=== PATIENT | male | born 1985 | race Caucasian/White ===

== ENCOUNTER 2016-05-13 07:45 | Emergency (ER) | payer OTHER ==
[2016-05-13 08:05] VITALS: BP 128/87
--- NOTE | 2016-05-13 08:27 | UC ---
Respiratory Complaint HPI - HPI Summary HPI Summary: 2 DAYS OF COUGH, QUICK AND CHILLS. NO FEVER, ST, EAR PAIN, N/V/D. COUGH IS KEEPING HIM UP AT NIGHT. DID GET A FLU SHOT THIS SEASON. - History of Current Complaint Chief Complaint: UCRespiratory Stated Complaint: FLU SYMPTOMS Time Seen by Provider: 05/13/16 08:17 Hx Obtained From: Patient Onset/Duration: Gradual Onset, Lasting Days, Still Present Timing: Constant Severity Initially: Mild Severity Currently: Mild Pain Intensity: 0 Pain Scale Used: 0-10 Numeric Character: Cough: Nonproductive Aggravating Factors: Recumbent Position Alleviating Factors: Nothing Associated Signs And Symptoms: Positive: Chills, URI, Nasal Congestion. Negative: Dyspnea, Fever, Pleuritic Chest Pain, Wheezing, Hemoptysis, Dizziness , Calf Pain, Calf Swelling, Edema, Hoarseness, Sinus Discomfort - Allergies/Home Medications Allergies/Adverse Reactions: Allergies Allergy/AdvReac Type Severity Reaction Status Date / Time Carbamazepine [From Tegretol] Allergy Swelling Verified 08/26/12 10:34 Of Face,Lips,& Throat Home Medications: Home Medications Secukinumab [Cosentyx] 150 mg SC SEE INSTRUCTIONS 05/13/16 [History Confirmed ] PMH/Surg Hx/FS Hx/Imm Hx Cardiovascular History Of: Denies: Cardiac Disorders, Hypertension Respiratory History Of: Denies: COPD, Asthma Neurological History Of: Reports: Seizures - Surgical History Surgical History: None - Family History Known Family History: Positive: Cardiac Disease, Hypertension - Social History Alcohol Use: Daily Alcohol Amount: daily beer Substance Use Type: None Smoking Status (MU): Light Every Day Tobacco Smoker - Immunization History Most Recent Influenza Vaccination: utd Most Recent Tetanus Shot: utd Review of Systems Constitutional: Chills, Fatigue ENT: Nasal Discharge Respiratory: Cough Cardiovascular: Negative Gastrointestinal: Negative Neurological: Headache All Other Systems Reviewed And Are Negative: Yes Physical Exam Triage Information Reviewed: Yes Appearance: Well-Appearing, No Pain Distress, Well-Nourished Vital Signs: Initial Vital Signs Temp 98.8 F 05/13/16 07:55 Pulse 89 05/13/16 07:55 Resp 18 05/13/16 07:55 BP 128/87 05/13/16 07:55 Pulse Ox 97 05/13/16 07:55 Vital Signs Reviewed: Yes Eyes: Positive: Conjunctiva Clear ENT: Positive: Hearing grossly normal, Pharynx normal, TMs normal Neck: Positive: Supple, Nontender, No Lymphadenopathy Respiratory Exam: Normal Cardiovascular Exam: Normal Abdomen Description: Positive: Soft Musculoskeletal: Positive: No Edema Neurological: Positive: Alert Psychological: Positive: Age Appropriate Behavior Skin: Negative: rashes UC Diagnostic Evaluation - Laboratory O2 Sat by Pulse Oximetry: 97 Respiratory Course/Dx - Differential Dx/Diagnosis Differential Diagnosis/HQI/PQRI: Bronchitis, Influenza, Sinusitis Provider Diagnoses: ACUTE URI Discharge - Discharge Plan Condition: Stable Disposition: HOME Prescriptions: guaiFENesin/CODIEN 100MG-10MG* [Robitussin AC 100Mg-10Mg*] 5 - 10 ml PO Q6H PRN #150 ml MDD 40ML PRN Reason: Cough Patient Education Materials: Upper Respiratory Infection (ED) Forms: *Work Release Referrals: Garret Omer MD [Primary Care Provider] - If Needed
== END 2016-05-13 08:40 | disposition home or self-care (01) ==
LOC: UCEAST 07:45
DX: J06.9 Acute upper respiratory infection, unspecified (principal); F17.290 Nicotine dependence, other tobacco product, uncomplicated; R56.9 Unspecified convulsions; Z88.1 Allergy status to other antibiotic agents
CPT/HCPCS: 99201; G0463

== ENCOUNTER 2018-08-17 08:39 | Emergency (ER) | payer OTHER, BC ==
[2018-08-17 08:50] VITALS: BP 133/77
--- NOTE | 2018-08-17 10:06 | UC ---
Lower Extremity/Ankle HPI - HPI Summary HPI Summary: Dropped a tar kettle runner grade wooden knife block on his right foot 6 days ago. Has persistent pain, bruising and swelling. - History of Current Complaint Chief Complaint: UCLowerExtremity Stated Complaint: FOOT INJURY Time Seen by Provider: 08/17/18 09:21 Hx Obtained From: Patient Onset/Duration: Sudden Onset, Lasting Days, Still Present Severity Initially: Moderate Severity Currently: Moderate Pain Intensity: 6 Pain Scale Used: 0-10 Numeric Aggravating Factor(s): Standing, Ambulation Alleviating Factor(s): Rest, Elevation Able to Bear Weight: Yes - WITH PAIN - Allergies/Home Medications Allergies/Adverse Reactions: Allergies Allergy/AdvReac Type Severity Reaction Status Date / Time carbamazepine [From Tegretol] Allergy swelling Verified 08/17/18 08:44 face lips and throat PMH/Surg Hx/FS Hx/Imm Hx Previously Healthy: Yes - Surgical History Surgical History: Yes Surgery Procedure, Year, and Place: hydrocele - Family History Known Family History: Positive: Cardiac Disease, Hypertension - Social History Alcohol Use: Daily Alcohol Amount: daily beer Substance Use Type: None Smoking Status (MU): Current Some Day Smoker - Immunization History Most Recent Influenza Vaccination: utd Most Recent Tetanus Shot: utd Review of Systems All Other Systems Reviewed And Are Negative: Yes Constitutional: Positive: Negative Skin: Positive: Bruising Respiratory: Positive: Negative Cardiovascular: Positive: Negative Gastrointestinal: Positive: Negative Musculoskeletal: Positive: Arthralgia, Edema Physical Exam Triage Information Reviewed: Yes Appearance: Well-Appearing, No Pain Distress, Well-Nourished Vital Signs: Initial Vital Signs Temp 98 F 08/17/18 08:45 Pulse 84 08/17/18 08:45 Resp 17 08/17/18 08:45 BP 133/77 08/17/18 08:45 Pulse Ox 100 08/17/18 08:45 Vital Signs Reviewed: Yes Eyes: Positive: Conjunctiva Clear ENT: Positive: Hearing grossly normal Neck: Positive: Supple Respiratory: Positive: No respiratory distress, No accessory muscle use Cardiovascular: Positive: Pulses Normal Abdomen Description: Positive: Soft Musculoskeletal: Positive: ROM Intact, Edema @ - HEMATOMA BRIDGE OF FOOT WITH TENDERNESS OVER METATARSALS Neurological: Positive: Alert Psychological: Positive: Age Appropriate Behavior Skin: Positive: Other - BRUSING OVER RIGHT FOOT FROM HEEL TO TOES AND OVER BRIDGE OF FOOT Diagnostics - Radiology RIGHT FOOT XRAYS Radiology Interpretation Completed By: Radiologist Summary of Radiographic Findings: 1. Significant soft tissue swelling over the dorsum of the forefoot with suggestion of. an approximate 2.1 cm anteroposterior by 0.8 cm cephalocaudal loculated hematoma, given. the clinical context, within the superficial soft tissue plane at the level of the. metatarsals with overlying convexity of the skin contour. Correlate with clinical. assessment. 2. Negative for fracture or articular malalignment. Normal variant os peroneum accessory. ossicles. Lower Extremity Course/Dx - Differential Dx/Diagnosis Provider Diagnosis: Traumatic hematoma of right foot, Contusion of right foot Discharge - Sign-Out/Discharge Documenting (check all that apply): Patient Departure All imaging exams completed and their final reports reviewed: Yes - Discharge Plan Condition: Stable Disposition: HOME Patient Education Materials: Foot Contusion (ED), Hematoma (ED) Forms: *Gen. Provider Communication Referrals: Onur De Paz MD [Medical Doctor] - If Needed Garret Omer MD [Primary Care Provider] - If Needed Additional Instructions: XRAY TODAY NEGATIVE FOR FRACTURE OR DISLOCATION. YOUR SYMPTOMS SHOULD IMPROVE SIGNIFICANTLY OVER THE NEXT 1-2 WEEKS. IF YOU DO NOT IMPROVE EXPECTED FOLLOW- UP WITH YOUR PCP OR ORTHO. YOU MAY BENEFIT FROM REPEAT IMAGING AT THAT TIME. OTC IBUPROFEN OR ALEVE NEEDED FOR DISCOMFORT. REST, ICE, COMPRESS, ELEVATE. BLAKE WRAP NEEDED FOR SYMPTOM RELIEF. - Billing Disposition and Condition Condition: STABLE Disposition: Home
== END 2018-08-17 10:21 | disposition home or self-care (01) ==
LOC: UCEAST 08:39
DX: S90.31XA Contusion of right foot, initial encounter (principal); F17.200 Nicotine dependence, unspecified, uncomplicated; Z88.8 Allergy status to other drugs, medicaments and biological substances; W20.8XXA Other cause of strike by thrown, projected or falling object, initial encounter; Y92.9 Unspecified place or not applicable
CPT/HCPCS: 99211; G0463